=== PATIENT | female | born 1960 | race African-American/Black ===

== ENCOUNTER 2020-01-29 19:15 | Emergency (ER) | payer MEDICAID ==
[~2020-01-29] VITALS: Ht 165.1 cm; Wt 61.0 kg
[2020-01-29 21:26] VITALS: BP 134/66
== END 2020-01-29 21:27 | disposition home or self-care (01) ==
LOC: ER 19:15
DX: H66.91 Otitis media, unspecified, right ear (principal); H93.11 Tinnitus, right ear; I10 Essential (primary) hypertension; Z98.51 Tubal ligation status
CPT/HCPCS: 99282

== ENCOUNTER 2021-07-17 12:43 | Emergency (ER) | payer MEDICAID ==
[~2021-07-17] VITALS: Ht 167.6 cm; Wt 65.0 kg
[2021-07-17] MEDS ORDERED: LIDOCAINE HCL/PF 1% 10 MG/ML 5ML VIAL INFIL ONE (14:15)
[2021-07-17] MEDS ORDERED: ACETAMINOPHEN WITH CODEINE 300/30MG TABLET PO ONE (14:15)
[2021-07-17] MEDS ORDERED: BACITRACIN ZINC OINT UDPKT TOP ONE (14:15)
[2021-07-17] MEDS ORDERED: TETANUS, DIPHTHERIA, PERTUSSIS VAC/PF 0.5ML (>10YR OLD) IM ONE (14:15)
[2021-07-17 16:20] VITALS: BP 138/89
== END 2021-07-17 16:21 | disposition home or self-care (01) ==
LOC: ER 12:43
DX: S61.411A Laceration without foreign body of right hand, initial encounter (principal); I10 Essential (primary) hypertension; M19.90 Unspecified osteoarthritis, unspecified site; W01.0XXA Fall on same level from slipping, tripping and stumbling without subsequent striking against object, initial encounter; Y93.01 Activity, walking, marching and hiking; Y92.9 Unspecified place or not applicable; Z98.51 Tubal ligation status
CPT/HCPCS: 12001; 73130; 90471; 90715; 99283; A4217; J3490; Z7610

== ENCOUNTER 2021-07-20 10:26 | Emergency (ER) | payer MEDICAID ==
[~2021-07-20] VITALS: Ht 167.6 cm; Wt 66.0 kg
[2021-07-20] MEDS ORDERED: BACITRACIN ZINC OINT UDPKT TOP ONE (11:30)
[2021-07-20 11:52] VITALS: BP 126/64
== END 2021-07-20 11:53 | disposition home or self-care (01) ==
LOC: ER 10:26
DX: S61.011D Laceration without foreign body of right thumb without damage to nail, subsequent encounter (principal); X58.XXXD Exposure to other specified factors, subsequent encounter; I10 Essential (primary) hypertension; Z98.51 Tubal ligation status; Z90.49 Acquired absence of other specified parts of digestive tract
CPT/HCPCS: 99283

== ENCOUNTER 2021-08-01 19:05 | Emergency (ER) | payer MEDICAID ==
[~2021-08-01] VITALS: Ht 167.6 cm; Wt 64.0 kg
[2021-08-01 19:33] VITALS: BP 148/89
== END 2021-08-01 22:15 | disposition home or self-care (01) ==
LOC: ER 19:05
DX: S61.011D Laceration without foreign body of right thumb without damage to nail, subsequent encounter (principal); Z48.02 Encounter for removal of sutures; Z98.51 Tubal ligation status; Z90.49 Acquired absence of other specified parts of digestive tract; X58.XXXD Exposure to other specified factors, subsequent encounter
CPT/HCPCS: 99281